=== PATIENT | female | born 2005 | race Caucasian/White ===

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

== ENCOUNTER 2024-07-03 19:07 | Emergency (ER) | payer SELFPAY ==
[2024-07-03 19:17] VITALS: BP 112/85; PULSE 75
== END 2024-07-03 20:05 | disposition home or self-care (01) ==
LOC: JP.ED 19:07
DX: M77.11 Lateral epicondylitis, right elbow (principal); F17.210 Nicotine dependence, cigarettes, uncomplicated
CPT/HCPCS: 99283